=== PATIENT | female | born 1965 | race Caucasian/White ===

== ENCOUNTER → 2017-03-11 | Day surgery (SDC) | payer MEDICAID ==
[~2017-03-11] MED LIST: Lactated Ringers 1,000 ML IV SCH; Propofol 200 MG/20 ML SDV IV ONE
[2017-03-11 13:36] VITALS: BP 121/72
--- NOTE | 2017-03-14 07:04 | OR ---
DATE OF OPERATION: 03/11/2017 PREOPERATIVE DIAGNOSIS: FOLLOW UP POLYPS. POSTOPERATIVE DIAGNOSIS: FOLLOW UP POLYPS. SURGEON: David Paez MD PROCEDURE: FULL-LENGTH COLONOSCOPY WITH POLYP REMOVAL X2. 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 COMPLICATIONS: None. SPECIMEN: Tubular adenomas x2. FINDINGS: 1. Full-length colonoscopy. 2. Two separate tubular adenomas, cecum and rectum. RECOMMENDATIONS: Followup colonoscopy in 5 years. INDICATIONS: The patient has a history of polyp removal. She is due for a followup scope, Dr. Lion sent her for such. DESCRIPTION OF PROCEDURE: The patient was prepped and draped, placed in left lateral decubitus position. A lubricated Olympus colonoscope was inserted and easily advanced to the cecum. Direct visualization of the ileocecal valve and appendiceal orifice was accomplished. Bowel prep was marginal, but most stool was liquid and able to be suctioned. Right outside the cecal pouch, the patient had a small flat tubular adenoma, removed in its entirety with 2 cold forceps biopsies without complication. Resolution of bleeding was spontaneous. The rest of the ascending, transverse, and descending colon were completely benign. Throughout the right transverse, descending, and sigmoid area, I found no signs of any other polyps, mass, ulcerations, or bleeding sites. There were no vascular abnormalities or signs of colitis. No significant diverticula were seen. In the rectal vault, the patient had another small flat adenoma, likely hyperplastic, removed with 2 cold forceps biopsies in its entirety. Retroflexion scope in the rectum showed no perianal lesions. Air was then suctioned. The scope was removed without complication. NORMAN/DAWN /[id number]
== END ==
LOC: CC.SDS 11:58
PROVIDERS: ATTEND Family Medicine
DX: Z12.11 Encounter for screening for malignant neoplasm of colon (principal); D12.0 Benign neoplasm of cecum; D12.8 Benign neoplasm of rectum; Z88.1 Allergy status to other antibiotic agents; Z88.2 Allergy status to sulfonamides; F32.9 Major depressive disorder, single episode, unspecified; E03.9 Hypothyroidism, unspecified; E04.1 Nontoxic single thyroid nodule; Z79.899 Other long term (current) drug therapy; F17.210 Nicotine dependence, cigarettes, uncomplicated; Z72.0 Tobacco use
CPT/HCPCS: 45380; J2704; J7120

== ENCOUNTER → 2017-08-12 | Day surgery (SDC) | payer MEDICAID ==
[~2017-08-12] MED LIST changes: +Glycopyrrolate 0.2 MG/ML SDV IVPUSH ONE
[2017-08-12 11:46] VITALS: BP 123/78
--- NOTE | 2017-08-15 07:11 | OR ---
DATE OF OPERATION: 08/12/2017 PREOPERATIVE DIAGNOSIS: EPIGASTRIC PAIN. POSTOPERATIVE DIAGNOSIS: EPIGASTRIC PAIN. SURGEON: David Paez MD PROCEDURE: ESOPHAGOGASTRODUODENOSCOPY WITH BIOPSIES X2, LAURI. 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 COMPLICATIONS: None. SPECIMEN: 1. Antral biopsy x2. 2. LUARI. 3. Duodenal bulb biopsy. FINDINGS: 1. Full-length EGD. 2. Moderate active antral gastritis. 3. Mild duodenitis. RECOMMENDATIONS: The patient will be initiated on proton pump therapy and Carafate. We will follow her clinically and recheck after biopsies. INDICATIONS: The patient has been having some ongoing issues with epigastric pain and left upper quadrant pain. She has a history of prior cholecystectomy. We elected to proceed with EGD. DESCRIPTION OF PROCEDURE: The patient was prepped and draped, placed in the left lateral decubitus position. A lubricated Olympus gastroscope was inserted and easily intubated in the esophagus. Esophageal lining was benign in its entire course. Z-line was crisp at 39 cm. No distal esophagitis, stricturing, ulceration, or Sherman changes seen. Scope advanced through the stomach and pylorus into the second portion of duodenum. Second portion of duodenum was benign. The bulb itself had a very very mild amount of erythema and minimal inflammation. We did do a biopsy. The scope was brought back into the stomach and retroflexed. The upper fundus and cardia appeared benign. Upon straightening, I could find no signs of any polyps, masses, or worrisome lesions. There was no evaristo ulcerations or erosions present. The patient does have active gastritis in the antrum extending to the pylorus which is mild to moderate in severity. We did do 2 biopsies of this and a LAURI test. Air was then suctioned. The scope was removed without complication. The patient was stable in the recovery room. NORMAN/DAWN /[id number]
== END ==
LOC: CC.SDS 09:33
PROVIDERS: ATTEND Family Medicine
DX: K29.50 Unspecified chronic gastritis without bleeding (principal); K29.80 Duodenitis without bleeding; F32.9 Major depressive disorder, single episode, unspecified; E78.5 Hyperlipidemia, unspecified; E03.9 Hypothyroidism, unspecified; E55.9 Vitamin D deficiency, unspecified; Z88.1 Allergy status to other antibiotic agents; Z88.8 Allergy status to other drugs, medicaments and biological substances; Z79.899 Other long term (current) drug therapy; F17.210 Nicotine dependence, cigarettes, uncomplicated
CPT/HCPCS: 43239; 87081; J2704; J7120